=== PATIENT | female | born 1995 | race Caucasian/White ===

== ENCOUNTER → 2016-10-21 | Outpatient (CLI) | payer OTHER ==
[~2016-10-21] MED LIST: GADOBUTROL 10 ML VIAL IVP ONE
== END ==
LOC: FIMAGING 13:08
PROVIDERS: ATTEND Psychiatry & Neurology Neurology
DX: M62.838 Other muscle spasm (principal)
CPT/HCPCS: A9585

== ENCOUNTER → 2017-09-13 | Outpatient (CLI) | payer OTHER | LOC: FIMAGING 07:47 | PROVIDERS: ATTEND Psychiatry & Neurology Neurology | DX: R29.2 Abnormal reflex (principal); M51.24 Other intervertebral disc displacement, thoracic region; R91.1 Solitary pulmonary nodule | CPT/HCPCS: A9585 ==

== ENCOUNTER 2017-09-18 22:26 | Emergency (ER) | payer OTHER ==
[2017-09-18] MEDS ORDERED: SKIN ADHESIVE (DERMABOND) 1 EACH TP ONE (22:35)
--- NOTE | 2017-09-18 22:39 | EDPHY ---
H & P Smoking Status: Never smoked Time Seen by Provider: 09/18/17 22:34 HPI/ROS: CHIEF COMPLAINT: Syncopal episode, forehead laceration HISTORY OF PRESENT ILLNESS: 22-year-old female sustained a more than likely vasovagal syncopal episode episode while she was watching a family member receive sutures in the emergency department. I was placing sutures on said family member and I witnessed the patient have a syncopal episode from the opposite side of the bed, impacting her head. No loss of consciousness. Awoke within a few seconds. Nursing staff was in the room at the time this happened as well and assisted the patient to sit up. When I examine the patient she is awake alert oriented person place time events, denies alcohol or drug use. Does state that she did not have dinner this evening. Denies him headache, nausea, vomiting, midline C-spine pain, peripheral paresthesia, weakness, numbness. REVIEW OF SYSTEMS: A ten point review of systems was performed and is negative with the exception of the items mentioned in the HPI PAST MEDICAL/SURGICAL HISTORY: no anticoagulant use, no relevant medical/ surgical history. Tetanus up-to-date SOCIAL HISTORY: denies alcohol use at time of incident PHYSICAL EXAM 1) GENERAL: Well-developed, well-nourished, alert and oriented. Appears to be in no acute distress. Answering questions appropriately. 2) HEAD: Normocephalic, 2.5 cm linear well-demarcated laceration left frontal region. 3) HEENT: Pupils equal, round, reactive to light bilaterally. Negative Horners. Nasopharynx, oropharynx, clear. No deformity or angulation of nose. No septal hematoma. No rhinorrhea. No oral trauma. Ears bilaterally with normal tympanic membranes. No hemotympanum. No fluid or blood in the external auditory canal. No raccoon eyes. No Howell sign. Teeth are normally aligned with no gross malocclusion, TMJ bilaterally nontender, facial bones nontender including the zygomatic arch, maxilla mandible. 4) NECK: No cervical collar is on. Posterior cervical spine is nontender, no stepoff, no effusion. Full range of motion which does not elicit any midline cervical spine pain, no posterior midline tenderness, no step-off. 5) LUNGS: Clear to auscultation bilaterally, no wheezes, no rhonchi, no retractions. No obvious signs of trauma. No chest wall pain. No flaring, no grunting. Moving symmetrically. No crepitus. 6) HEART: [Regular rate and rhythm, 7) ABDOMEN: No guarding, no rebound, no focal tenderness, no peritoneal signs, no signs of trauma, no ecchymosis 8) MUSCULOSKELETAL: Moving all extremities, no focal areas of tenderness, no obvious trauma. 9) BACK: No midline vertebral tenderness, no fluctuance, no step-off, no obvious trauma, no visual or palpable abnormality. 10) SKIN: forehead laceration 11) NEURO: Awake, alert, and oriented to person, place and time. Answers questions appropriately. There were no obvious focal neurologic abnormalities. No cerebellar dysfunction. Normal steady gait. Upper and lower extremities bilaterally with strength 5 / 5, reflexes 2+. DIFFERENTIAL DIAGNOSIS: Not necessarily in any particular order, my differential diagnosis includes, but is not limited to, concussion, skull fracture, intraparenchymal contusion, subarachnoid, subdural and epidural hematoma. The patient understands that this diagnosis is provisional and can never be 100% accurate. (Eduard Walsh) Constitutional: Initial Vital Signs Temperature (C) 36.7 C 09/18/17 22:29 Heart Rate 100 09/18/17 22:29 Respiratory Rate 20 09/18/17 22:29 Blood Pressure 133/94 H 09/18/17 22:29 O2 Sat (%) 98 09/18/17 22:29 O2 Delivery Mode Room Air Allergies/Adverse Reactions: Sulfa (Sulfonamide Antibiotics) Allergy (Verified 09/18/17 22:29) MDM/Departure - [facility] Procedures: Procedure: Laceration repair with tissue adhesive Verbal consent was obtained from the patient. The 2.5 cm laceration on the left eyebrow region was scrubbed and explored to its base with a gloved finger. No foreign body seen, no foreign bodies palpated. There were no deep structures involved. The wound was repaired with tissue adhesive. The procedure was performed by myself. Patient has been informed that scarring will occur, although every effort has been made to minimize this. (Eduard Walsh ) ED Course/Re-evaluation: I think this patient's syncopal episode is more likely secondary to acute vasovagal syncope secondary to watching her family member receive sutures. I witness the patient's syncopal episode. Nursing staff and I were able to immediately a render assistance to the patient. She is answering questions appropriately. There is no seizure activity. She is answering questions appropriate this time. I do not think that imaging studies of the head are currently indicated. Her wound has been closed with tissue adhesive. She feels comfortable being discharged with usual and customary head injury precautions and instructions. I believe her to have decision-making capacity. I saw this patient independently based on established practice protocols. Care of patient under supervision of secondary supervising physician Dr Cagle . ( Eduard Walsh) - Depart Disposition: Home, Routine, Self-Care Clinical Impression: Vasovagal syncope, Laceration of forehead Condition: Good Instructions: Laceration (ED), Syncope (ED), Skin Adhesive Care (ED) Additional Instructions: ALTHOUGH THERE IS NO EVIDENCE OF SERIOUS HEAD INJURY AT THIS TIME, DELAYED SIGNS CAN APPEAR 24 TO 48 HOURS AFTER INJURY. PLEASE RETURN TO THE EMERGENCY DEPARTMENT (ED) IMMEDIATELY IF YOU HAVE INCREASED HEADACHE, PERSISTENT HEADACHE , VOMITING, WEAKNESS, CONFUSION OR VISUAL PROBLEMS. WE RECOMMEND THAT YOU DO NOT RESUME CONTACT SPORTS OR ACTIVITIES THAT TAKE COORDINATION OR BALANCE SUCH SKIING OR RIDING A BICYCLE UNTIL CLEARED TO DO SO BY YOUR DOCTOR OR BY A NEUROLOGIST. Referrals: Follow-up, with primary care provider in 2-3 days [Other] - As per Instructions
[2017-09-18 23:00] VITALS: BP 131/92
== END 2017-09-18 22:59 | disposition home or self-care (01) ==
PROC: 0HQ1XZZ Repair Face Skin, External Approach (ICD-10-PCS; principal; 2017-09-18)
DX: S01.81XA Laceration without foreign body of other part of head, initial encounter (principal); R55 Syncope and collapse; W19.XXXA Unspecified fall, initial encounter

== ENCOUNTER → 2017-09-27 | Outpatient (CLI) | payer OTHER | LOC: FIMAGING 07:45 | PROVIDERS: ATTEND Family Medicine | DX: R91.1 Solitary pulmonary nodule (principal) ==

== ENCOUNTER → 2017-12-29 | Outpatient (CLI) | payer OTHER | LOC: FIMAGING 09:04 | PROVIDERS: ATTEND Family Medicine | DX: R91.1 Solitary pulmonary nodule (principal) ==

== ENCOUNTER → 2018-09-20 | Outpatient (CLI) | payer OTHER | LOC: FIMAGING 09:12 ==